=== PATIENT | male | born 1955 | race Caucasian/White ===

== ENCOUNTER → 2019-06-24 | Outpatient (CLI) | payer OTHER ==
--- NOTE | 2019-06-25 11:37 | RADIOLOGY REPORT (SQ) ---
EXAM DESCRIPTION: PET CT SKULL/THIGH COMPLETED DATE/TIME: 06/24/2019 1:35 pm REASON FOR STUDY: RIGHT LUNG NODULE (R91.8) R91.8 OTHER NONSPECIFIC ABNORMAL FINDING OF LUNG FIELD COMPARISON: None. RADIONUCLIDE AND DOSE: 9.26 mCi F18 FDG The route of agent administration: Intravenous FASTING BLOOD SUGAR: 110 mg/dl CONTRAST TYPE AND DOSE: No CT contrast given. TECHNIQUE: Blood glucose level was verified. Above dose of FDG was injected intravenously. 2-D seg mented attenuation correction images were obtained from the base of the skull to the midthighs. Nonc ontrast CT images were obtained for attenuation correction and fusion with emission images. CT image s were performed without oral or intravenous contrast and are not sensitive for parenchymal lesions. A series of overlapping emission PET images were obtained. Images reviewed and manipulated at [facility] work [facility] by the radiologist. Images stored on PACS. LIMITATIONS: None. FINDINGS: HEAD AND NECK: No areas of abnormal metabolic activity in the soft tissues of the head and neck. CHEST: The 7 x 7 mm nodule in the right upper lobe (image 93 of series 3) demonstrates no abnormal FD G uptake. There is an enlarged and FDG avid left hilar lymph node that has a maximum SUV of 8.6. No other areas of abnormal metabolic activity identified in the chest. ABDOMEN AND PELVIS: The liver demonstrates heterogeneous non focal FDG uptake with an average SUV of 2.5. There is expected physiologic activity throughout the gastrointestinal and genitourinary tract. No areas of abnormal metabolic activity identified in the abdomen and pelvis. PROXIMAL LOWER EXTREMITIES: No areas of abnormal metabolic activity in the soft tissues of the lower extremities. BONES: No areas of abnormal metabolic activity are identified ADDITIONAL CT FINDINGS: The left ventricle is enlarged and there is moderate to severe atheroscleroti c calcification of the coronary arteries. There is no pericardial effusion. The morphology of the l iver is non cirrhotic. The spleen is normal in size. There is no adrenal mass. There is colonic di verticulosis without diverticulitis. The prostate gland is enlarged. There is a fat containing left inguinal hernia. OTHER: No other findings. IMPRESSION: Enlarged and hypermetabolic left hilar lymph node with a maximum SUV of 8.6 concerning f or a malignant process. The 7 x 7 mm nodule in the right upper lobe (image 93 of series 3) demonstra ej no abnormal FDG uptake. Correlation with outside CTs is recommended. TECHNICAL DOCUMENTATION: JOB ID: [id number] 2010 [email or web address]- All Rights Reserved Reading location - IP/workstation name: [email or web address]
== END ==
LOC: RAD 10:47
PROVIDERS: ATTEND Nurse Practitioner Family
DX: R91.1 Solitary pulmonary nodule (principal); I25.10 Atherosclerotic heart disease of native coronary artery without angina pectoris; R59.0 Localized enlarged lymph nodes
CPT/HCPCS: 78815; A9552